=== PATIENT | female | born 1950 | race Two or more races ===

== ENCOUNTER 2020-08-05 06:00 | Day surgery (SDC) | payer OTHER ==
[~2020-08-05 06:00] MED LIST: ATACAND32 MG; NEURONTIN300 MG PO; NEURONTIN600 M1 PO; NORVASC5 MG PO; SYNTHROID75 MCG PO
[2020-08-06] MEDS ORDERED: ALL DAY ALLERGY10 M3 PO (11:26)
[2020-08-06] MEDS ORDERED: CARBAMAZEPINE200 M3 PO (11:26)
[2020-08-06] MEDS ORDERED: PANTOPRAZOLE SO40 MG PO (11:26)
[2020-08-06] MEDS ORDERED: GLYCOPYRROLATE1 MG PO (11:27)
[2020-08-06] MEDS ORDERED: ZYRTEC10 M3 PO (17:44)
[2020-08-06] MEDS ORDERED: MEDROLPACK PO (17:44)
== END 2020-08-05 12:20 | disposition home or self-care (01) ==
LOC: CIR.AMB 06:00
PROVIDERS: ATTEND Colon & Rectal Surgery
DX: R15.9 Full incontinence of feces (principal); Z20.828 Contact with and (suspected) exposure to other viral communicable diseases
CPT/HCPCS: 64581; C1778

== ENCOUNTER 2020-08-06 10:57 | Emergency (ER) | payer OTHER ==
[~2020-08-06] VITALS: Ht 154.9 cm; Wt 73.9 kg
[2020-08-06] MEDS ORDERED: ALL DAY ALLERGY10 M3 PO (11:26)
[2020-08-06] MEDS ORDERED: PANTOPRAZOLE SO40 MG PO (11:26)
[2020-08-06] MEDS ORDERED: CARBAMAZEPINE200 M3 PO (11:26)
[2020-08-06] MEDS ORDERED: GLYCOPYRROLATE1 MG PO (11:27)
[2020-08-06] MEDS ORDERED: ZYRTEC10 M3 PO (17:44)
[2020-08-06] MEDS ORDERED: MEDROLPACK PO (17:44)
== END 2020-08-06 18:34 | disposition home or self-care (01) ==
LOC: ER 10:57
DX: R60.0 Localized edema (principal); R06.02 Shortness of breath; L76.82 Other postprocedural complications of skin and subcutaneous tissue; T50.995A Adverse effect of other drugs, medicaments and biological substances, initial encounter; Y92.89 Other specified places as the place of occurrence of the external cause; Y83.8 Other surgical procedures as the cause of abnormal reaction of the patient, or of later complication, without mention of misadventure at the time of the procedure

== ENCOUNTER 2020-08-14 01:12 | Inpatient (IN) | payer OTHER ==
[~2020-08-14] VITALS: Ht 165.1 cm; Wt 79.4 kg
[~2020-08-14 01:12] MED LIST changes: +ALL DAY ALLERGY10 M3 PO; +CARBAMAZEPINE200 M3 PO; +GLYCOPYRROLATE1 MG PO; +MEDROLPACK PO; +PANTOPRAZOLE SO40 MG PO; +ZYRTEC10 M3 PO
--- NOTE | 2020-08-14 01:25 | NUR ---
PT ALERTA Y ORIENTADA X3 ESFERAS REFIERE DOLOR ABDOMINAL DESDE LA TARDE DE HOY. INDICA VOMITOS Y DIARREAS. PT REFIERE LA DRA MARTHA ASKEW LE REALIZO GUILLE INTERVENCION LA SEMANA PASADA.
--- NOTE | 2020-08-14 02:13 | NUR ---
PACIENTE ALERTA Y ORIENTADA POR ROLAN.SE ORIENTA DE TRATAMINTO ISAC ORDEN MEDICA POR MR Blake SANDERSON RN, PACIENTE REFIERE ENTENDER.ANETA LA CANALIZA, LE NATHALY MUESTRAS Y ADMINISTRA MEDICAMENTOS ISAC ORDEN MEDICA.SE CONTINUA MONITOREANDO POR CAMBIOS SIGNIFICATIVOS.
--- NOTE | 2020-08-14 07:11 | NUR ---
PACIENTE ALERTA Y ORIENTADA EN DARRYL ROLAN ESFERAS, PRESENTA BUEN PATRON RESPIRATORIO Y JAIMIE DE DOLOR. CANALIZADA EN BRAZO RT PATENTE Y JAIMIE DE DOLOR, RECIBIENDO 0.9% NSS A 125 ML/HR. PENDIENTE SONOGRAMA ABDOMINAL Y PENDIENTE EVALUACION CON MEDICINA INTERNA DRA CASTILLO POR PANCREATITIS.
== END 2020-08-18 12:51 | disposition home or self-care (01) | DRG 439 ==
LOC: ER 01:12 → MEDI 14:17 → SURG 14:17
PROVIDERS: ADMIT Internal Medicine; ATTEND Internal Medicine
PROC: BW21YZZ Computerized Tomography (CT Scan) of Abdomen and Pelvis using Other Contrast (ICD-10-PCS; principal; 2020-08-14)
DX: K85.90 Acute pancreatitis without necrosis or infection, unspecified (principal); K86.2 Cyst of pancreas; E03.9 Hypothyroidism, unspecified; I10 Essential (primary) hypertension; Z20.828 Contact with and (suspected) exposure to other viral communicable diseases; Z96.82 Presence of neurostimulator